=== PATIENT | female | born 1985 | race African-American/Black ===

== ENCOUNTER 2021-04-13 13:29 | Emergency (ER) | payer SELFPAY ==
[~2021-04-13] VITALS: Ht 154.9 cm; Wt 118.3 kg
[2021-04-13 15:20] VITALS: BP 151/85
== END 2021-04-13 15:39 | disposition home or self-care (01) ==
LOC: ER 14:17
DX: I10 Essential (primary) hypertension (principal)
CPT/HCPCS: 81025; 99282